=== PATIENT | male | born 1975 | race Caucasian/White ===

== ENCOUNTER 2018-02-14 20:41 | Emergency (ER) | payer OTHER ==
[2018-02-14] MEDS: IV NORMAL SALINE 1000ML BAG 1,000 ML IV ×2 (20:45→23:00)
[2018-02-14] MEDS ORDERED: ONDANSETRON PF 4 MG/2 ML VIAL. (21:00)
[2018-02-14] MEDS: ONDANSETRON PF 4 MG/2 ML VIAL. IV (21:10)
[2018-02-14 21:37] LABS: ADD MAN DIFF? NO
[2018-02-14 21:41] LABS: BASO # 0.1 x10^3/uL (0.0-0.2); BASO % 1 % (0-3); EOS # 0.1 x10^3/uL (0.0-0.7); EOS % 1 % (0-3); HEMATOCRIT 39.6 % (39.0-53.0); HEMOGLOBIN 13.8 g/dL (13.0-17.5); LYMPH # 2.2 x10^3/uL (1.0-4.8); LYMPH % 24 % (24-48); MEAN CORPUSCULAR HEMOGLOBIN 30 pg (25-35); MEAN CORPUSCULAR HGB CONC 35 g/dL (31-37); MEAN CORPUSCULAR VOLUME 85 fL (79-100); MONO # 0.6 x10^3/uL (0.0-1.1); MONO % 6 % (0-9); NEUT # 6.5 x10^3uL (1.8-7.7); NEUT % 68 % (31-73); PLATELET COUNT 299 x10^3/uL (140-400); RED BLOOD COUNT 4.66 x10^6/uL (4.30-5.70); WHITE BLOOD COUNT 9.5 x10^3/uL (4.0-11.0)
[2018-02-14 21:56] LABS: ANION GAP 13 (6-14); BLOOD UREA NITROGEN 13 mg/dL (8-26); CALCIUM 8.6 mg/dL (8.5-10.1); CARBON DIOXIDE 22 mmol/L (21-32); CHLORIDE 106 mmol/L (98-107); CREATININE 1.2 mg/dL (0.7-1.3); GFR 66.4; GLUCOSE 114 mg/dL (70-99); POTASSIUM 3.7 mmol/L (3.5-5.1); SODIUM 141 mmol/L (136-145)
[2018-02-14 21:56] LABS: AMMONIA 20 mcmol/L (11-34)
[2018-02-14 22:03] LABS: ALBUMIN 3.9 g/dL (3.4-5.0); ALK PHOS 99 U/L (46-116); ALT (SGPT) 37 U/L (16-63); AST (SGOT) 20 U/L (15-37); CREATINE KINASE 245 U/L (39-308); DIRECT BILIRUBIN 0.1 mg/dL (0.0-0.2); TOTAL BILIRUBIN 0.3 mg/dL (0.2-1.0); TOTAL PROTEIN 7.1 g/dL (6.4-8.2)
[2018-02-14 22:04] LABS: ACETAMIN < 2 mcg/ml (10-30); SALIC < 2.8 mg/dL (2.8-20.0)
[2018-02-14 22:05] LABS: LACTIC ACID 2.5 mmol/L (0.4-2.0)
[2018-02-14 22:06] LABS: TROPONINI < 0.017 ng/mL (0.000-0.055)
[2018-02-15] MEDS: IV NORMAL SALINE 1000ML BAG 1,000 ML IV (00:05)
[2018-02-15 01:25] LABS: BILIRUBIN,URINE NEGATIVE (NEG); CLARITY,URINE CLEAR; COLOR,URINE YELLOW; GLUCOSE,URINE NEGATIVE (NEG); NITRITE,URINE NEGATIVE (NEG); PROTEIN,URINE NEGATIVE (NEG-TRACE); UROBILINOGEN,URINE 0.2 mg/dL (0.2 mg/dL)
[2018-02-15 01:27] LABS: BARBITURATES NEG (NEG); BENZODIAZEPINES NEG (NEG); CANNABINOIDS NEG (NEG); COCAINE NEG (NEG); METHADONE NEG (NEG); OPIATES NEG (NEG); PHENCYCLIDINE NEG (NEG)
[2018-02-15 01:30] LABS: AMPHETAMINE/METHAMPHETAMINE NEG (NEG); ETHANOL, URINE POS (NEG)
[2018-02-15 01:39] LABS: BACTERIA,URINE FEW /HPF (0-FEW); WBC,URINE OCC /HPF (0-4)
== END 2018-02-15 01:33 | disposition home or self-care (01) ==
LOC: ER 02-15 01:33
DX: R41.82 Altered mental status, unspecified (principal); F43.10 Post-traumatic stress disorder, unspecified
CPT/HCPCS: 36415; 70450; 80048; 80076; 80307; 80329; 81001; 82140; 82550; 83605; 84484; 85025; 93005; 96361; 96374; 99285-25; G6039; J2405; J7030